=== PATIENT | female | born 1995 | race African-American/Black ===

== ENCOUNTER 2021-11-11 09:03 | Outpatient (CLI) | payer BC, SELFPAY ==
[2021-11-11 09:48] LABS: Hematocrit 42.3 % (37.0-47.0); Hemoglobin 14.2 g/dL (12.0-15.0); Mean Corpuscular HGB Conc 33.6 g/dl (32-36); Mean Corpuscular Hemoglobin 30.9 pg (26-34); Mean Corpuscular Volume 92.2 fl (80-100); Mean Platelet Volume 9.7 fl (7.4-10.4); Platelet Count Result 279 k/mm3 (150-375); Red Blood Count 4.59 M/mm3 (4.2-5.4); Red Cell Distribution Width 12.6 % (11.5-14.5); White Blood Count 6.1 K/mm3 (4.5-10.0)
[2021-11-11 09:55] LABS: Add Urine Microscopic? YES; Appearance Urine Clear (Clear); Bilirubin Urine Negative (Negative); Blood Urine Negative (Negative); Color Urine Yellow (Yellow); Glucose Urine UA Negative (Negative); Ketones Urine Negative (Negative); Leukocyte Esterase Ur Negative LEU/UL (NEGATIVE); Mucus Urine Rare /lpf; Nitrate Urine Negative (Negative); Protein Urine Negative (Negative); RBC Urine 0-2 /hpf (0-2); Specific Grav Ur 1.019 (1.001-1.035); Squamous Epithelial Cell Urine Occasional /hpf (Few); Urobilinogen Urine Negative mg/dL (<2.0); WBC Urine 0-3 /hpf (0-3)
[2021-11-11 10:06] LABS: Alanine Aminotransferase 14 U/L (4-35); Albumin Level 4.4 g/dL (3.5-5.1); Alkaline Phosphatase 54 U/L (38-126); Anion Gap 7 mmol/L (8-16); Aspartate Amino Transferase 26 U/L (14-36); Bilirubin,Total 0.9 mg/dL (0.2-1.3); Blood Urea Nitrogen 14 mg/dL (7-17); Carbon Dioxide 27 mmol/L (22-30); Chloride 104 mmol/L (98-107); Cholesterol 148 mg/dL (0-200); Estimated Glomerular Filt Rate > 60; Glucose 84 mg/dL (65-110); HDL Direct 73 mg/dL; Potassium 3.9 mmol/L (3.4-5.0); Sodium 138 mmol/L (137-145); Triglycerides 91 mg/dL (<150)
[2021-11-11 10:15] LABS: Hemoglobin A1C 4.8 % (<5.7)
[2021-11-11 10:17] LABS: LDL Cholesterol Direct 40 mg/dL
[2021-11-11 10:31] LABS: Free T4 Free Thyroxine 1.07 ng/mL (0.78-2.19)
[2021-11-11 10:45] LABS: HIV 1/2 Ab P24 Ag Result Negative (Negative)
[2021-11-11 10:47] LABS: Hepatitis B Surface Antigen Negative (Negative)
[2021-11-11 10:53] LABS: HAV RESULT Negative (Negative); Hepatitis B Core IgM Result Negative (Negative)
[2021-11-11 11:05] LABS: Hepatitis C Virus Antibody Negative (Negative)
[2021-11-11 11:47] LABS: Pregnancy On Board Control Positive; Urine Pregnancy Test Negative
[2021-11-11 12:06] LABS: Beta HCG Quantitative < 2.39 mIU/ML
[2021-11-12 00:44] LABS: Creatinine Urine 159.6 mg/dL
[2021-11-12 01:36] LABS: MALB Creatinine Ratio < 3.8 mg/g (0-30); Microalbumin Urine Random < 6.0 mg/L (0-16.7)
[2021-11-12 06:46] LABS: Rapid Plasma Reagin Non-Reactive (NonReactive)
== END 2021-11-11 09:04 | disposition home or self-care (01) ==
PROVIDERS: PCP Emergency Medicine; Visit Provider Emergency Medicine
DX: Z20.2 Contact with and (suspected) exposure to infections with a predominantly sexual mode of transmission (principal)
CPT/HCPCS: 36415; 80053; 80061; 80074; 81001; 81025; 82043; 83036; 84439; 84443; 84702; 85027; 86592; 86703; 87491; 87591; G0432

== ENCOUNTER 2022-02-01 13:43 | Emergency (ER) | payer BC, SELFPAY ==
[2022-02-01 13:53] VITALS: BP 109/75; PULSE 69; RESP 18; TEMP 37.4; O2SAT 99
--- NOTE | 2022-02-01 14:14 | ED.DENTAL ---
HPI - Dental/Oral General Chief complaint: Dental/Oral Stated complaint: Tooth Pain Time Seen by Provider: 02/01/22 14:14 Source: patient Mode of arrival: ambulatory Limitations: no limitations History of Present Illness HPI Narrative: 26-year-old female presents with complaint of right sided upper gum pain for 2 to 3 days. Reports that she has the infections that come and go to same spot since October. Did see her oral surgeon yesterday and was told that he would open up the abscess and drain it next week. Patient had tooth extracted from this area in October and there is concern for piece of tooth still in gum. Did not start patient on an antibiotic. Told her to go to her dentist for pain medication and antibiotic. She denies fever chills. All systems reviewed and negative except as noted above. Related Data Allergies Allergy/AdvReac Type Severity Reaction Status Date / Time No Known Allergies Allergy Verified 02/01/22 14:07 Review of Systems Review of Systems: CONSTITUTIONAL: Denies fever, chills, or sweats. EYES: Denies visual changes, redness, or discharge. ENT: Denies rhinorrhea, congestion, sore throat, or otalgia. Reports right-sided upper gum pain. CARDIOVASCULAR: Denies chest pain, palpitations, or edema. RESPIRATORY: Denies cough or dyspnea. GASTROINTESTINAL: Denies abdominal pain, nausea, vomiting, or diarrhea. GENITOURINARY: Denies dysuria or hematuria. SKIN: Denies rash or itching. MUSCULOSKELETAL: Denies back pain, joint pain, or myalgia. NEUROLOGIC: Denies headache, numbness, or weakness. PSYCHIATRIC: Denies anxiety or depression. All other systems reviewed are negative, except as documented in HPI. PMFSH Comments At time of signature, agree with nursing past medical, surgical, social and family history. There is no relevant family history pertinent to the presenting complaint. Exam Narrative: GENERAL: This is a well-nourished, well-developed patient, in no apparent distress. HEAD: normocephalic, atraumatic. EYES: PERRL. Sclera clear/white. Vision is grossly intact. EARS: External ears normal NOSE: External nose normal MOUTH: Tooth #3 has been extracted. To gum area there is erythema and swelling with fluctuance concerning for abscess. NECK: Neck supple, non-tender without lymphadenopathy, masses or thyromegaly. CARDIOVASCULAR: Regular rate and rhythm without murmurs, gallops, or rubs. RESPIRATORY: Clear to auscultation. Breath sounds equal bilaterally. No wheezes, rales, or rhonchi. SKIN: warm, Dry, intact with no suspicious lesions or rash, good texture and turgor. NEURO: awake, alert, and oriented to person, place and time. There were no obvious focal neurologic abnormalities. EXTREMITIES: Normal range of motion to all extremities. Course Course Level of Care: Express Care Visit Vital Signs Vital signs: Vital Signs Temperature 37.4 C 02/01/22 13:53 Pulse Rate 69 02/01/22 13:53 Respiratory Rate 18 02/01/22 13:53 Blood Pressure 109/75 02/01/22 13:53 Pulse Oximetry 99 02/01/22 13:53 Temperature 37.4 C 02/01/22 13:53 Pulse Rate 69 02/01/22 13:53 Respiratory Rate 18 02/01/22 13:53 Blood Pressure 109/75 02/01/22 13:53 Pulse Oximetry 99 02/01/22 13:53 Reviewed MDM - Dental/Oral MDM Narrative Medical decision making narrative: Patient has dental abscess. Has already been to see her oral surgeon and has plans for follow-up next week for I&D. Will start on clindamycin. Patient is aware of diagnosis, understands and agrees to treatment plan. Anticipatory guidance given. Patient agrees to follow-up as directed and is aware of reasons to seek care at the emergency department. Portions of this record may have been created with voice recognition software Differential Diagnosis Differential diagnosis: Likely gingival abscess, dental caries and dental abscess Discharge Plan Discharge Clinical Impression: Dental abscess Patient Disposition: Home, Se
== END 2022-02-01 14:25 | disposition home or self-care (01) ==
PROVIDERS: Emergency Provider Nurse Practitioner Family; PCP Emergency Medicine
DX: K04.7 Periapical abscess without sinus (principal)
CPT/HCPCS: 99213; G0463

== ENCOUNTER 2022-03-15 11:08 | Emergency (ER) | payer BC, SELFPAY ==
[2022-03-15 11:18] VITALS: BP 115/73; PULSE 50; RESP 18; TEMP 36.3; O2SAT 100
--- NOTE | 2022-03-15 11:44 | ED.GENADULT ---
HPI - General Adult General Chief complaint: Unspecified Stated complaint: Swollen Lymph Node Time Seen by Provider: 03/15/22 11:30 Source: patient Mode of arrival: ambulatory Limitations: no limitations History of Present Illness HPI narrative: 26 yo F presents with c/o swollen, tender lymph node to L groin for 2 to 3 days. Also reports yellow vaginal discharge with odor. Does not think she has an STI but would like checked. States i thought swollen lymph nodes meant i had an infection . Denies ABD pain. No urinary complaints. No concern for . all systems reviewed and negative except as noted above. Related Data Home Medications Medication Instructions Recorded Confirmed No Home Medications 03/15/22 03/15/22 Allergies Allergy/AdvReac Type Severity Reaction Status Date / Time No Known Allergies Allergy Verified 02/01/22 14:07 Review of Systems Review of Systems: CONSTITUTIONAL: Denies fever, chills, or sweats. EYES: Denies visual changes, redness, or discharge. ENT: Denies rhinorrhea, congestion, sore throat, or otalgia. CARDIOVASCULAR: Denies chest pain, palpitations, or edema. RESPIRATORY: Denies cough or dyspnea. GASTROINTESTINAL: Denies abdominal pain, nausea, vomiting, or diarrhea. GENITOURINARY: Denies dysuria or hematuria. Reports yellow vaginal discharge. SKIN: Denies rash or itching. Reports left groin enlarged lymph node. MUSCULOSKELETAL: Denies back pain, joint pain, or myalgia. NEUROLOGIC: Denies headache, numbness, or weakness. PSYCHIATRIC: Denies anxiety or depression. All other systems reviewed are negative, except as documented in HPI. PMFSH Comments At time of signature, agree with nursing past medical, surgical, social and family history. There is no relevant family history pertinent to the presenting complaint. Exam Narrative: GENERAL: This is a well-nourished, well-developed patient, in no apparent distress. HEAD: normocephalic, atraumatic. EYES: PERRL. Sclera clear/white. Vision is grossly intact. EARS: External ears normal NOSE: External nose normal NECK: Neck supple, non-tender without lymphadenopathy, masses or thyromegaly. CARDIOVASCULAR: Regular rate and rhythm without murmurs, gallops, or rubs. RESPIRATORY: Clear to auscultation. Breath sounds equal bilaterally. No wheezes, rales, or rhonchi. GASTROINTESTINAL: Abdomen soft, non-tender, nondistended. Bowel sounds are active. No hepato-splenomegaly, or palpable masses. No guarding. : yellow thick vaginal discharge. no odor. cervix normal. no rash, no vaginal irrigation or swelling. SKIN: warm, Dry, intact with no suspicious lesions or rash, good texture and turgor. Lymph node to L groin enlarged and tender. No erythema or warmth. NEURO: awake, alert, and oriented to person, place and time. There were no obvious focal neurologic abnormalities. EXTREMITIES: No joint tenderness, effusion, or edema noted. Course Course Level of Care: Express Care Visit Vital Signs Vital signs: Vital Signs Temperature 36.3 C L 03/15/22 11:18 Pulse Rate 50 L 03/15/22 11:18 Respiratory Rate 18 03/15/22 11:18 Blood Pressure 115/73 03/15/22 11:18 Pulse Oximetry 100 03/15/22 11:18 Oxygen Delivery Room Air 03/15/22 11:18 Temperature 36.3 C L 03/15/22 11:18 Pulse Rate 50 L 03/15/22 11:18 Respiratory Rate 18 03/15/22 11:18 Blood Pressure 115/73 03/15/22 11:18 Pulse Oximetry 100 03/15/22 11:18 Oxygen Delivery Room Air 03/15/22 11:18 Reviewed Medical Decision Making MDM Narrative Medical decision making narrative: thick yellow vaginal discharge. pt does not want abx today to treat for STI. wants to wait for results. Patient is aware of diagnosis, understands and agrees to treatment plan. Anticipatory guidance given. Patient agrees to follow-up as directed and is aware of reasons to seek care at the emergency department. Portions of this record may have been created with voice recognition soft
== END 2022-03-15 11:55 | disposition home or self-care (01) ==
PROVIDERS: Emergency Provider Nurse Practitioner Family; PCP Emergency Medicine
DX: N89.8 Other specified noninflammatory disorders of vagina (principal); R59.1 Generalized enlarged lymph nodes
CPT/HCPCS: 87070; 87491; 87591; 87661; 99214; G0463

== ENCOUNTER 2023-02-24 15:45 | Emergency (ER) | payer BC, SELFPAY ==
[2023-02-24 15:56] VITALS: BP 117/72; PULSE 55; RESP 16; TEMP 37.1; O2SAT 99
--- NOTE | 2023-02-24 15:59 | ED.GENADULT ---
HPI - General Adult General Chief complaint: Head Injury Stated complaint: Head injury; dull headaches; pressure around ears Time Seen by Provider: 02/24/23 16:19 Source: patient, RN notes reviewed and old records reviewed Mode of arrival: ambulatory Limitations: no limitations History of Present Illness HPI narrative: 27-year-old female presents to the [facility] with complaints of a headache. Patient states she went to sit in a chair on Thursday as she sat down she had that back of her head on the wall behind her with ?full force. ? Patient states she took an ibuprofen when it 1st happened but nothing since. Denies any nausea or vomiting. No cervical tenderness. No blurry vision or change in vision. No numbness or tingling in extremities. Walks with a normal gait. Is not light or sound sensitive. Related Data Home Medications Medication Instructions Recorded Confirmed No Home Medications 03/15/22 01/06/23 Allergies Allergy/AdvReac Type Severity Reaction Status Date / Time No Known Allergies Allergy Verified 02/24/23 15:56 Review of Systems Review of Systems: All systems reviewed & are unremarkable except as noted in HPI and below Constitutional: Constitutional: Reports no additional constitutional complaints Eyes: Eyes: Reports no additional eye complaints ENT: Reports system reviewed and no additional complaints, except as documented Cardiovascular: Cardiovascular: Reports no additional cardiovascular complaints, Denies chest pain and Denies dyspnea Respiratory: Respiratory: Reports no additional respiratory complaints, Denies chest congestion, Denies cough and Denies dyspnea Gastrointestinal: Gastrointestinal: Reports no additional gastrointestinal complaints, Denies abdominal pain, Denies nausea and Denies vomiting Musculoskeletal: Musculoskeletal: Reports no additional musculoskeletal complaints Integumentary/Breasts: Skin/Breast: Reports system reviewed and no additional complaints, except as docu Neurologic: Reports as per HPI and Reports headache(s) Psychiatric: Psychiatric: Reports no additional psychiatric complaints Allergic/Immunologic: Allergic/Immunologic: Reports no additional allergic/immunologic complaints [facility] Past Medical History Medical History Encounter for screening examination for sexually transmitted disease Vaginal delivery (12/09/16) no complications [facility] Surgical History Surgical History Delivery by section (11/11/18) primary c/s Saw Family History Family History Father Diabetes mellitus Hypertension Heart disease Other Cerebrovascular accident maternal aunt Mother H/O ovarian cancer Lung cancer Social History Social History Smoking status: Never smoker Alcohol intake: current Drinks per week: 2 Substance use: never Substance use type: does not use Living arrangements: alone Additional living arrangements comments: with children Occupation/Education: occupation Additional occupation/education comments: [employer] Gender identity (if verbalized by the patient): Female Sexual Orientation (if Verbalized by the Patient): Straight or Heterosexual Comments At the time of my signature, I reviewed and agree with the nursing past medical, surgical, social, and family history. There is no relevant family history pertinent to the patient complaint. Exam Const: General: cooperative, healthy appearing, comfortable, no acute distress, well developed, alert and well nourished Nutritional Appearance: well nourished Orientation/consciousness: patient oriented x3 Limitations: no limitations HENMT: Head: normal to inspection Ears: hearing grossly normal bilaterally, external ears normal, TM's normal
== END 2023-02-24 16:32 | disposition home or self-care (01) ==
PROVIDERS: Emergency Provider Nurse Practitioner
DX: R51.9 Headache, unspecified (principal)
CPT/HCPCS: 99213; G0463

== ENCOUNTER 2023-02-24 17:09 | Emergency (ER) | payer BC, SELFPAY ==
[2023-02-24 17:15] VITALS: BP 116/83; PULSE 60; RESP 16; TEMP 36.4; O2SAT 100
--- NOTE | 2023-02-24 17:34 | ED.HA ---
HPI - Headache General Chief Complaint: Headache Stated Complaint: head injury two days ago Time Seen by Provider: 02/24/23 17:34 Source: patient Mode of arrival: ambulatory Limitations: no limitations History of Present Illness HPI Narrative: Patient is a 27-year-old female without significant past medical history presenting to the emergency department for evaluation of headache pain following head trauma 4 days ago. Patient reportedly sat down in a lawn chair, hitting her head on a landscaping brick that was behind her. Patient without loss of conscious. No vision changes, severe headache, nausea or vomiting. No focal weakness or numbness. Patient has no history of anticoagulation use. No history of coagulopathy. She has been ambulatory without difficulty. She was seen initially at urgent care and was sent here for evaluation and possible CT scan of the head. Pt denies neck pain. No focal weakness or numbness. Related Data Allergies Allergy/AdvReac Type Severity Reaction Status Date / Time No Known Allergies Allergy Verified 02/24/23 15:56 Review of Systems Review of Systems: CONSTITUTIONAL: Denies fever CARDIOVASCULAR: Denies chest pain RESPIRATORY: Denies cough or dyspnea. GASTROINTESTINAL: Denies abdominal pain SKIN: Denies rash MUSCULOSKELETAL: Denies back pain NEUROLOGIC: Denies headache PMFSH Past Medical History Medical History Encounter for screening examination for sexually transmitted disease Vaginal delivery (12/09/16) [facility] complications [facility] Surgical History Surgical History Delivery by section (11/11/18) primary c/s Saw Family History Family History Father Diabetes mellitus Hypertension Heart disease Other Cerebrovascular accident maternal aunt Mother H/O ovarian cancer Lung cancer Social History Social History Smoking status: Never smoker Alcohol intake: current Drinks per week: 2 Substance use: never Substance use type: does not use Living arrangements: alone Additional living arrangements comments: with children Occupation/Education: occupation Additional occupation/education comments: [employer] Gender identity (if verbalized by the patient): Female Sexual Orientation (if Verbalized by the Patient): Straight or Heterosexual Exam Narrative: GENERAL: Awake, alert, conversant HEAD: Normocephalic, atraumatic. EYES: PERRLA and EOMI. ENT: Nares clear, no rhinorrhea or epistaxis. Mucous membranes moist. NECK: Supple. CHEST: No respiratory distress, breathing even and non labored HEART: Regular rate, sinus rhythm ABDOMEN:Non distended, non tender EXTREMITIES: Normal range of motion. No edema. SKIN: Warm, dry, no rash. NEURO:No focal deficits. Alert and oriented x3. Finger to nose intact bilaterally. EOMs intact without nystagmus. No facial droop/asymmetry noted bilaterally. Grimace intact. Intact sensation in face. Hearing intact bilaterally. Shoulder shrug intact. Strength 5/5 bilateral upper extremities. Strength 5/5 bilateral lower extremities. Reflexes 2+ patellar. Heel to mckee intact bilaterally. Ambulatory with a narrow base, steady gait, no ataxia. Course Vital Signs Vital signs: Vital Signs Temperature 36.4 C 02/24/23 17:15 Pulse Rate 60 02/24/23 17:15 Respiratory Rate 16 02/24/23 17:15 Blood Pressure 116/83 02/24/23 17:15 Pulse Oximetry 100 02/24/23 17:15 Temperature 36.4 C 02/24/23 17:15 Pulse Rate 60 02/24/23 17:15 Respiratory Rate 16 02/24/23 17:15 Blood Pressure 116/83 02/24/23 17:15 Pulse Oximetry 100 02/24/23 17:15 MDM - Headache MDM Narrative Medical decision making narrative: Patient presented for evaluation of headache after she h
[2023-02-24 17:50] VITALS: BP 122/79; PULSE 64; RESP 14; O2SAT 97
== END 2023-02-24 17:59 | disposition home or self-care (01) ==
LOC: ANHED 17:54
PROVIDERS: Emergency Provider Emergency Medicine
DX: G44.309 Post-traumatic headache, unspecified, not intractable (principal); F07.81 Postconcussional syndrome
CPT/HCPCS: 99283

== ENCOUNTER 2023-07-14 09:07 | Emergency (ER) | payer BC, SELFPAY ==
[2023-07-14 09:22] VITALS: BP 129/62; PULSE 67; RESP 16; TEMP 38.1; O2SAT 99
[2023-07-14 09:44] VITALS: TEMP 38.1
[2023-07-14] MEDS: ACETAMINOPHEN 500 MG TABLET 1000 MG PO (09:44)
--- NOTE | 2023-07-14 09:52 | ED.URI ---
HPI - URI/Sore Throat General Chief Complaint: Upper Respiratory Infection Stated Complaint: Sore Throat Time Seen by Provider: 07/14/23 09:51 Source: patient, RN notes reviewed and old records reviewed Mode of arrival: ambulatory Limitations: no limitations History of Present Illness HPI Narrative: 28-year-old female presents to the [facility] with complaints of a scratchy throat that started last night, body aches, fevers, chills started this morning. No treatment prior to arrival Treatments prior to arrival: none Related Data Home Medications Medication Instructions Recorded Confirmed No Home Medications 07/14/23 07/14/23 Allergies Allergy/AdvReac Type Severity Reaction Status Date / Time No Known Allergies Allergy Verified 07/14/23 09:35 Review of Systems Review of Systems: All systems reviewed & are unremarkable except as noted in HPI and below Constitutional: Constitutional: Reports as per HPI, Reports body ache(s), Reports chills, Reports fatigue, Reports fever(s) and Reports headache(s) Eyes: Eyes: Reports no additional eye complaints ENT: Reports as per HPI and Reports sore throat Cardiovascular: Cardiovascular: Reports no additional cardiovascular complaints, Denies chest pain and Denies dyspnea Respiratory: Respiratory: Reports no additional respiratory complaints, Denies chest congestion, Denies cough and Denies dyspnea Gastrointestinal: Gastrointestinal: Reports no additional gastrointestinal complaints, Denies abdominal pain, Denies nausea and Denies vomiting Musculoskeletal: Musculoskeletal: Reports no additional musculoskeletal complaints Integumentary/Breasts: Skin/Breast: Reports system reviewed and no additional complaints, except as docu Neurologic: Reports system reviewed and no additional complaints, except as documented Psychiatric: Psychiatric: Reports no additional psychiatric complaints Allergic/Immunologic: Allergic/Immunologic: Reports no additional allergic/immunologic complaints [facility] Past Medical History Medical History Encounter for screening examination for sexually transmitted disease Vaginal delivery (12/09/16) no complications [facility] Surgical History Surgical History Delivery by section (11/11/18) primary c/s Saw Family History Family History Father Diabetes mellitus Hypertension Heart disease Other Cerebrovascular accident maternal aunt Mother H/O ovarian cancer Lung cancer Social History Social History Smoking status: Never smoker Alcohol intake: current Drinks per week: 2 Substance use: never Substance use type: does not use Living arrangements: alone Additional living arrangements comments: with children Occupation/Education: occupation Additional occupation/education comments: [employer] Gender identity (if verbalized by the patient): Female Sexual Orientation (if Verbalized by the Patient): Straight or Heterosexual Comments At the time of my signature, I reviewed and agree with the nursing past medical, surgical, social, and family history. There is no relevant family history pertinent to the patient complaint. Exam Const: General: cooperative, healthy appearing, comfortable, no acute distress, well developed, alert and well nourished Nutritional Appearance: well nourished Orientation/consciousness: patient oriented x3 Limitations: no limitations HENMT: Head: normal to inspection Ears: hearing grossly normal bilaterally and external ears normal Face/Nose/Sinus: Normal external nose present, Normal nares present, Normal nasal mucous membranes and turbinates present, normal facial exam and face symmetric Face and sinus: normal facial exam and face symmetric Mouth: Yes Nor
[2023-07-14 10:05] VITALS: TEMP 37.7
== END 2023-07-14 10:05 | disposition home or self-care (01) ==
PROVIDERS: Emergency Provider Nurse Practitioner; PCP Emergency Medicine
DX: B34.9 Viral infection, unspecified (principal); Z20.822 Contact with and (suspected) exposure to COVID-19
CPT/HCPCS: 87081; 87426; 87804; 87880; 99213; A9270; C9803; G0463

== ENCOUNTER 2023-11-11 08:34 | Emergency (ER) | payer BC, SELFPAY ==
[2023-11-11 08:45] VITALS: BP 105/65; PULSE 96; RESP 16; TEMP 37.1; O2SAT 98
--- NOTE | 2023-11-11 08:54 | ED.GENADULT ---
HPI - General Adult General Chief complaint: Upper Respiratory Infection Stated complaint: Cough/Bodyaches Source: patient, RN notes reviewed and old records reviewed Mode of arrival: ambulatory Limitations: no limitations History of Present Illness HPI narrative: 28-year-old female presents to [facility] complaint cough, congestion, sore throat, fever, myalgia, fatigue this started 2 days ago. Patient not taking anything for symptoms. Patient states today's worse today so far. Patient states child has also been sick. Related Data Home Medications Medication Instructions Recorded Confirmed No Home Medications 07/14/23 11/11/23 Allergies Allergy/AdvReac Type Severity Reaction Status Date / Time No Known Allergies Allergy Verified 11/11/23 08:44 Review of Systems Constitutional: Constitutional: Reports no additional constitutional complaints, Reports body ache(s), Denies chills, Reports fatigue, Reports fever(s) and Reports headache(s) Eyes: Eyes: Reports no additional eye complaints and Denies blurry vision ENT: Reports system reviewed and no additional complaints, except as documented, Denies vertigo, Denies dizziness, Denies ear discharge, Denies otalgia, Denies facial pain, Reports headache(s), Reports nasal congestion, Denies nasal discharge, Denies sinus pain, Reports sinus pressure and Reports sore throat Cardiovascular: Cardiovascular: Reports no additional cardiovascular complaints, Denies chest pain, Denies chest pain at rest, Denies rapid heart rate and Denies dyspnea Respiratory: Respiratory: Reports no additional respiratory complaints, Reports chest congestion, Reports cough, Denies pain on inspiration, Denies pain with cough and Denies dyspnea Gastrointestinal: Gastrointestinal: Denies abdominal pain, Denies diarrhea, Denies nausea and Denies vomiting Musculoskeletal: Musculoskeletal: Reports myalgias Integumentary/Breasts: Skin/Breast: Denies rash Neurologic: Reports system reviewed and no additional complaints, except as documented, Denies vertigo, Denies dizziness and Reports headache(s) Endocrine: Endocrine: Denies fatigue PMF Past Medical History Medical History Encounter for screening examination for sexually transmitted disease Vaginal delivery (12/09/16) no complications [facility] Surgical History Surgical History Delivery by section (11/11/18) primary c/s Saw Family History Family History Father Diabetes mellitus Hypertension Heart disease Other Cerebrovascular accident maternal aunt Mother H/O ovarian cancer Lung cancer Social History Social History Smoking status: Never smoker Alcohol intake: current Drinks per week: 2 Substance use: never Substance use type: does not use Living arrangements: alone Additional living arrangements comments: with children Occupation/Education: occupation Additional occupation/education comments: [employer] Gender identity (if verbalized by the patient): Female Sexual Orientation (if Verbalized by the Patient): Straight or Heterosexual Comments At the time of my signature, I reviewed and agree with the nursing past medical, surgical, social, and family history. There is no relevant family history pertinent to the patient complaint. Exam Const: General: cooperative, no acute distress, ill appearing acutely and well nourished Nutritional Appearance: well nourished Orientation/consciousness: patient oriented x3 Limitations: no limitations HENMT: Head: normal to inspection and normocephalic Ears: external ears normal, TM's normal bilaterally, EAC's normal and mastoids normal Face/Nose/Sinus: normal facial exam Face and sinus: normal facial exam Mouth: Yes Nor
== END 2023-11-11 09:08 | disposition home or self-care (01) ==
PROVIDERS: Emergency Provider Registered Nurse
DX: U07.1 COVID-19 (principal)
CPT/HCPCS: 87426; 87804; 99213; G0463

== ENCOUNTER 2023-11-27 12:08 | Emergency (ER) | payer BC, SELFPAY ==
[2023-11-27 12:14] VITALS: BP 122/61; PULSE 77; RESP 17; O2SAT 100
[2023-11-27] MEDS: SODIUM CHLORIDE 0.9% IV 1,000 ML 999 ML IV CONT (13:59)
[2023-11-27] MEDS: PROCHLORPERAZINE EDISYLATE 10 MG/2 ML VIAL IV PUSH (14:00)
[2023-11-27] MEDS: diphenhydrAMINE HCl INJ 50 MG/ML VIAL IV PUSH (14:00)
--- NOTE | 2023-11-27 14:28 | ED.GENADULT ---
HPI - General Adult General Chief complaint: Headache Stated complaint: headache Time Seen by Provider: 11/27/23 13:20 History of Present Illness HPI narrative: Patient is 28-year-old female who presents emergency department with chief complaint of headache. Patient reports the last 3 days she has been having dull sensation in her head that feels like pressure the patient reports photophobia reports some nausea. Patient reports no focal neurological deficits does report that on the of last month she had COVID. Patient denies chest pain denies shortness of breath denies focal neurological deficit Related Data Home Medications Medication Instructions Recorded Confirmed No Home Medications 07/14/23 11/11/23 Allergies Allergy/AdvReac Type Severity Reaction Status Date / Time No Known Allergies Allergy Verified 11/27/23 12:09 Review of Systems Review of Systems: A 10 system review of systems was completed on the patient and is negative except for what is stated in the HPI. Nursing and ancillary documentation was reviewed. [facility] Past Medical History Medical History Encounter for screening examination for sexually transmitted disease Vaginal delivery (12/09/16) no complications [facility] Surgical History Surgical History Delivery by section (11/11/18) primary c/s Saw Family History Family History Father Diabetes mellitus Hypertension Heart disease Other Cerebrovascular accident maternal aunt Mother H/O ovarian cancer Lung cancer Social History Social History Smoking status: Never smoker Alcohol intake: current Drinks per week: 2 Substance use: never Substance use type: does not use Living arrangements: alone Additional living arrangements comments: with children Occupation/Education: occupation Additional occupation/education comments: [employer] Gender identity (if verbalized by the patient): Female Sexual Orientation (if Verbalized by the Patient): Straight or Heterosexual Exam Narrative: GENERAL: Well-appearing, well-nourished, and in no acute distress. HEAD: Normocephalic, atraumatic. EYES: PERRLA and EOMI. ENT: Nares clear, no rhinorrhea or epistaxis. Mucous membranes moist. NECK: Supple. CHEST: Clear to auscultation. No respiratory distress. HEART: Regular rate and rhythm. No murmur heard. Normal peripheral pulses. ABDOMEN: Soft, nontender, nondistended, normal active bowel sounds. EXTREMITIES: Normal range of motion. No edema. SKIN: Warm, dry, no rash. NEURO: No focal deficits. Alert and oriented x3. PSYCH: Normal mood and affect. Course Vital Signs Vital signs: Vital Signs Pulse Rate 77 11/27/23 12:14 Respiratory Rate 17 11/27/23 12:14 Blood Pressure 122/61 11/27/23 12:14 Pulse Oximetry 100 11/27/23 12:14 Oxygen Delivery Room Air 11/27/23 12:14 Pulse Rate 77 11/27/23 12:14 Respiratory Rate 17 11/27/23 12:14 Blood Pressure 122/61 11/27/23 12:14 Pulse Oximetry 100 11/27/23 12:14 Oxygen Delivery Room Air 11/27/23 12:14 Medical Decision Making MDM Narrative Medical decision making narrative: Differential diagnosis includes migraine headache, cephalgia, Patient has no focal neurological deficits afebrile and no nuchal rigidity Patient was treated with a modified migraine cocktail as she has this taken an NSAID Patient started to feel better after receiving medications and would like to go Vital Signs Vital Signs: Vital Signs Pulse Rate 77 11/27/23 12:14 Respiratory Rate 17 11/27/23 12:14 Blood Pressure 122/61 11/27/23 12:14 Pulse Oximetry 100 11/27/23 12:14 Oxygen Delivery Room Air 11/27/23 12:14
[2023-11-27 14:59] VITALS: BP 111/49; PULSE 89; RESP 20; O2SAT 100
== END 2023-11-27 15:01 | disposition home or self-care (01) ==
PROVIDERS: Emergency Provider Emergency Medicine
DX: R51.9 Headache, unspecified (principal); Z20.822 Contact with and (suspected) exposure to COVID-19
CPT/HCPCS: 96361; 96374; 96375; 99284; J0780; J1200; J7030

== ENCOUNTER 2023-12-25 09:28 | Emergency (ER) | payer BC, SELFPAY ==
[2023-12-25 09:54] VITALS: BP 129/75; PULSE 69; RESP 16; TEMP 37.2; O2SAT 99
--- NOTE | 2023-12-25 09:59 | ED.EAR ---
HPI - Ear Problem General Chief complaint: Ear Stated complaint: SNYDER,right ear decreases hearing Time Seen by Provider: 12/25/23 09:59 Source: patient Mode of arrival: ambulatory Limitations: no limitations History of Present Illness HPI Narrative: 28-year-old female presents with complaint of decreased hearing to bilateral ears for 2 days. Reports nasal and sinus congestion for 3-4 days. Afebrile. Not taking any [id number] medications to treat her symptoms. Reports that ears are not painful. All systems reviewed and negative except as noted above. Related Data Allergies Allergy/AdvReac Type Severity Reaction Status Date / Time Penicillins AdvReac Intermediate Headache Verified 12/25/23 10:10 Review of Systems Review of Systems: CONSTITUTIONAL: Denies fever, chills, or sweats. EYES: Denies visual changes, redness, or discharge. ENT: Reports rhinorrhea, congestion. Denies sore throat . Reports decreased hearing to bilateral ears CARDIOVASCULAR: Denies chest pain, palpitations, or edema. RESPIRATORY: Denies cough or dyspnea. GASTROINTESTINAL: Denies abdominal pain, nausea, vomiting, or diarrhea. GENITOURINARY: Denies dysuria or hematuria. SKIN: Denies rash or itching. MUSCULOSKELETAL: Denies back pain, joint pain, or myalgia. NEUROLOGIC: Denies headache, numbness, or weakness. PSYCHIATRIC: Denies anxiety or depression. All other systems reviewed are negative, except as documented in HPI. [facility] Past Medical History Medical History Encounter for screening examination for sexually transmitted disease Vaginal delivery (12/09/16) no complications [facility] Surgical History Surgical History Delivery by section (11/11/18) primary c/s Saw Family History Family History Father Diabetes mellitus Hypertension Heart disease Other Cerebrovascular accident maternal aunt Mother H/O ovarian cancer Lung cancer Social History Social History Smoking status: Never smoker Alcohol intake: current Drinks per week: 2 Substance use: never Substance use type: does not use Living arrangements: alone Additional living arrangements comments: with children Occupation/Education: occupation Additional occupation/education comments: [employer] Gender identity (if verbalized by the patient): Female Sexual Orientation (if Verbalized by the Patient): Straight or Heterosexual Comments At time of signature, agree with nursing past medical, surgical, social and family history. There is no relevant family history pertinent to the presenting complaint. Exam Narrative: GENERAL: This is a well-nourished, well-developed patient, in no apparent distress. HEAD: normocephalic, atraumatic. EYES: PERRL. Sclera clear/white. Vision is grossly intact. EARS: External ears normal, auditory canals clear and without drainage, fluid bilateral TMs, dull light reflex. No erythema or perforation bilaterally. Hearing grossly intact. NOSE: External nose normal with Mild congestion, clear nasal drainage.. THROAT: Mucous membranes moist, Clear postnasal drainage NECK: Neck supple, non-tender without lymphadenopathy, masses or thyromegaly. CARDIOVASCULAR: Regular rate and rhythm without murmurs, gallops, or rubs. RESPIRATORY: Clear to auscultation. Breath sounds equal bilaterally. No wheezes, rales, or rhonchi. SKIN: warm, Dry, intact with no suspicious lesions or rash, good texture and turgor. NEURO: awake, alert, and oriented to person, place and time. There were no obvious focal neurologic abnormalities. EXTREMITIES: No joint tenderness, effusion, or edema noted. Course Course Level of Care: Express Care Visit Vital Signs Vital signs:
== END 2023-12-25 10:15 | disposition home or self-care (01) ==
PROVIDERS: Emergency Provider Nurse Practitioner Family
DX: H65.03 Acute serous otitis media, bilateral (principal); J01.90 Acute sinusitis, unspecified
CPT/HCPCS: 99213; G0463

== ENCOUNTER 2024-07-20 11:14 | Emergency (ER) | payer BC, SELFPAY ==
[2024-07-20 11:33] VITALS: BP 126/74; PULSE 67; RESP 16; TEMP 36.4; O2SAT 97
[2024-07-20 11:59] LABS: BEDSIDEPREGUCG Negative (Negative)
[2024-07-20 12:14] LABS: Add Urine Microscopic? YES; Appearance Urine Cloudy (Clear); Bacteria Urine 2+ /hpf; Bilirubin Urine Negative (Negative); Blood Urine Negative (Negative); Color Urine Yellow (Yellow); Glucose Urine UA Negative (Negative); Ketones Urine Trace mg/dL (Negative); Leukocyte Esterase Ur Negative LEU/UL (Negative); Nitrate Urine Negative (Negative); Non Pathogenic Casts 0-2; Protein Urine Negative (Negative); RBC Urine 0-2 /hpf (0-2); Specific Grav Ur 1.026 (1.001-1.035); Squamous Epithelial Cell Urine Moderate /hpf (Few); WBC Urine 0-5 /hpf (0-3)
--- NOTE | 2024-07-20 13:02 | ED.BACK ---
HPI - Back Pain/Injury General Chief Complaint: Back Pain/Injury Stated Complaint: THREW BACK OUT Time Seen by Provider: 07/20/24 12:06 History of Present Illness HPI Narrative: Pt states she originally tweaked low back a few weeks ago doing back bend for daughter. It was getting better and then this morning she was at gym lifiting and felt tightness in her right low back. Pt deniew numbness or weakness or probs with bladder or bowels. Related Data Allergies Allergy/AdvReac Type Severity Reaction Status Date / Time Penicillins AdvReac Intermediate Headache Verified 07/18/24 09:23 Review of Systems Review of Systems: All systems reviewed & are unremarkable except as noted in HPI and below PMFSH Past Medical History Medical History Encounter for screening examination for sexually transmitted disease Vaginal delivery (12/09/16) no complications [facility] Surgical History Surgical History Delivery by section (11/11/18) primary c/s Saw Family History Family History Father Diabetes mellitus Hypertension Heart disease Other Cerebrovascular accident maternal aunt Mother H/O ovarian cancer Lung cancer Social History Social History (Updated 07/18/24 @ 09:32 by DEVORA Anguiano) Smoking status: Never smoker Alcohol intake: current Drinks per week: 2 Substance use: never Substance use type: does not use Do You Feel Safe in your Home?: Yes Lack of Transportation: No Lack of Food: Never True Current Housing: Decline to Answer Concerned About Future Housing: Decline to Answer Difficulty Paying Gas/Electric Bills: Decline to Answer Difficulty Paying for Meds: Decline to Answer Currently Unemployed: Decline to Answer Education: Decline to Answer Difficulty w/ Childcare or Family Care: Decline to Answer Living arrangements: alone Additional living arrangements comments: with children Occupation/Education: occupation Additional occupation/education comments: [employer] Gender identity (if verbalized by the patient): Female Sexual Orientation (if Verbalized by the Patient): Straight or Heterosexual Exam Const: General: healthy appearing and no acute distress Nutritional Appearance: well nourished Orientation/consciousness: patient oriented x3 Limitations: no limitations Neck: Neck: normal visual inspection Resp: Effort & Inspection: normal respiratory effort Auscultation: clear to auscultation bilaterally Cardio: Rate: regular rate Rhythm: regular rhythm Back/Spine/Pelvis: Other: tender right paraspinous muscles low back with spasm Skin: General skin exam: normal color Neuro: General: patient oriented x3, moves all extremities, no meningeal signs, no focal motor deficits and CN's II-XI intact bilaterally Cranial nerves: Yes Nystagmus not present Speech: normal speech Extrem: General: normal to inspection and no clubbing, cyanosis or edema Psych: Mental Status: mental status grossly normal Affect: normal affect Attitude: cooperative Course Vital Signs Vital signs: Vital Signs Temperature 97.6 F 07/20/24 11:33 Pulse Rate 67 07/20/24 11:33 Respiratory Rate 16 07/20/24 11:33 Blood Pressure 126/74 07/20/24 11:33 Pulse Oximetry 97 07/20/24 11:33 Temperature 97.6 F 07/20/24 11:33 Pulse Rate 67 07/20/24 11:33 Respiratory Rate 16 07/20/24 11:33 Blood Pressure 126/74 07/20/24 11:33 Pulse Oximetry 97 07/20/24 11:33 MDM - Back Pain/Injury MDM Narrative Medical decision making narrative: Pt seems to have pretty typical low back strain. no need to image as no midline pain. pt does not want shot here. home on nsaids and flexeril and a few norco. Lab Data Labs: Lab Results 07/20/24 07/20/24 Range/Units 11:55 11:57 Urine Color Yellow (Yellow) Urine Appearance Cloudy H (Clear) Urine pH 6.0 (5.0-9.0) Ur Specific [place] 1.026 (1.001-1.035) Urine Protein Negative (Negative) mg/dL Urine Glucose (UA) Negative (Negative) mg/dL Urine Ketones Trace H (Negative) mg/dL Ur Blood (Man) Negative (Negative) Urine Nitrate Negative (Negative) Urine Bilirubin Negative (Negative) Urine Urobilinogen 1.0 (<2.0) mg/dL Leukocyte Esterase Rfl Negative (Negative) TRAV/UL Urine RBC 0-2 (0-2) /hpf Urine WBC 0-5 (0-3) /hpf Ur Squamous Epith Cells Moderate (Few) /hpf Urine Bacteria 2+ H /hpf Urine Casts 0-2 POC Urine HCG, Qual Negative (Negative) Discharge Plan Discharge Clinical Impression: Strain of lumbar region Patient Disposition: Home, Self-Care Condition: Stable Instructions: Antibiotic Form, Acute Low Back Pain (ED) Prescriptions: New naproxen [Naprosyn] 500 mg tablet 500 mg PO BID Qty: 20 0RF cyclobenzaprine 10 mg tablet 10 mg PO TID Qty: 14 0RF hydrocodone-acetaminophen 5-325 mg tablet 1 tablet PO Q6H PRN (Reason: pain) Qty: 10 0RF Follow-up/Referrals: PHYSICIAN,PUBLIC HEALTH PHYSICIAN [Non-Staff] - Stand Alone Forms: Work/School Release IP
== END 2024-07-20 12:42 | disposition home or self-care (01) ==
PROVIDERS: Registered Nurse; Emergency Provider Emergency Medicine
DX: S39.012A Strain of muscle, fascia and tendon of lower back, initial encounter (principal); X50.0XXA Overexertion from strenuous movement or load, initial encounter; Y93.B9 Activity, other involving muscle strengthening exercises
CPT/HCPCS: 81001; 81025; 99283

== ENCOUNTER 2024-08-25 08:14 | Emergency (ER) | payer BC, SELFPAY ==
[2024-08-25 08:19] VITALS: BP 116/66; PULSE 62; RESP 16; TEMP 37.3; O2SAT 100
--- NOTE | 2024-08-25 08:26 | ED_ITS ---
HPI - Ear Problem General Chief complaint: Ear Stated complaint: right ear issue, head pressure, dizzy Time Seen by Provider: 08/25/24 08:20 Source: patient Mode of arrival: ambulatory Limitations: no limitations History of Present Illness HPI Narrative: Mara is a 29-year-old female patient presenting to the clinic today with complaints of right ear discomfort/pressure, head pressure, and some dizziness. She reports her symptoms have been going on for the past 2 days. Has been having issues with her ear for over the last year since COVID. Denies any fever, chills, or body aches. Denies any URI symptoms. Feels as though she has a sharp pain in the right neck just below her ear Related Data Allergies Allergy/AdvReac Type Severity Reaction Status Date / Time Penicillins AdvReac Intermediate Headache Verified 07/18/24 09:23 Review of Systems Review of Systems: Pertinent positives per HPI. Patient denies any fever, chills, rash, headache, visual changes, dizziness, cough, runny nose, sore throat, shortness of breath, chest pain, palpitations, nausea, vomiting, diarrhea, constipation, abdominal pain, or any urinary issues. [facility] Past Medical History Medical History Encounter for screening examination for sexually transmitted disease [facility]aginal delivery (12/09/16) [facility] Surgical History Delivery by section (11/11/18) primary c/s Saw Family History Family History Father Diabetes mellitus Hypertension Heart disease Other Cerebrovascular accident maternal aunt Mother H/O ovarian cancer Lung cancer Social History Social History Smoking status: Never smoker Alcohol intake: current Drinks per week: 2 Substance use: never Substance use type: does not use Do You Feel Safe in your Home?: Yes Lack of Transportation: No Lack of Food: Never True Current Housing: Decline to Answer Concerned About Future Housing: Decline to Answer Difficulty Paying Gas/Electric Bills: Decline to Answer Difficulty Paying for Meds: Decline to Answer Currently Unemployed: Decline to Answer Education: Decline to Answer Difficulty w/ Childcare or Family Care: Decline to Answer Living arrangements: alone Additional living arrangements comments: with children Occupation/Education: occupation Additional occupation/education comments: [employer] Gender identity (if verbalized by the patient): Female Sexual Orientation (if Verbalized by the Patient): Straight or Heterosexual Comments At the time of my signature, I reviewed and agree with the nursing past medical, surgical, social, and family history. There is no relevant family history pertinent to the patient complaint. Exam Narrative: General: Well-developed, well nourished, in no apparent distress Head: Normocephalic, atraumatic Eyes: Pupils equally round and reactive to light bilaterally, EOM intact, sclera and conjunctive clear, no discharge, lids normal Ears: TMs intact, mild bulging, clear, ear canals clear, no drainage, grossly hearing normal. Nose: Nares patent, no discharge, no inflammation, no sinus tenderness. Mouth: Oropharynx without lesions or masses, good dentition, MMM. Neck: Supple, trachea midline, no enlargement of anterior or posterior cervical nodes, no thyroid masses or goiter palpable. Cardio: Regular rate and rhythm, s1 and s2 normal, no murmur appreciated. Resp: Clear to auscultation bilaterally anteriorly and posteriorly, no rhonchi, rales, wheezing or rubs Course Course Emergency Course: Portions of this record may have been created with voice recognition software. Level of Care: Express Care Visit Vital Signs Vital signs: Vital Signs Temperature 37.3 C 08/25/24 08:19 Pulse Rate 62 08/25/24 08:19 Respiratory Rate 16 08/25/24 08:19 Blood Pressure 116/66 08/25/24 08:19 Pulse Oximetry 100 08/25/24 08:19 Oxygen Delivery Room Air 08/25/24 08:19 Temperature 37.3 C 08/25/24 08:19 Pulse Rate 62 08/25/24 08:19 Respiratory Rate 16 08/25/24 08:19 Blood Pressure 116/66 08/25/24 08:19 Pulse Oximetry 100 08/25/24 08:19 Oxygen Delivery Room Air 08/25/24 08:19 Vital signs reviewed Medical Decision Making MDM Narrative Medical decision making narrative: At the time of visit patient is resting comfortably on the exam table. Patient appears to be nontoxic. Plan: I suspect patient has eustachian tube dysfunction of the right ear. Prescription for prednisone was sent to the pharmacy. Also recommend using Flonase and [id number] antihistamines as well as trying Afrin if her symptoms are persistent. Will give her name of Dr. Gant to follow up for ears nose and throat. Supportive measures were discussed with the patient and they voiced understanding discharge instructions and agrees to treatment plan. Return precautions reviewed Differential Diagnosis Differential Diagnosis: Otitis media, otitis externa, eustachian tube dysfunction, cerumen impaction, upper respiratory infection, serous otitis Vital Signs Vital Signs: Vital Signs Temperature 37.3 C 08/25/24 08:19 Pulse Rate 62 08/25/24 08:19 Respiratory Rate 16 08/25/24 08:19 Blood Pressure 116/66 08/25/24 08:19 Pulse Oximetry 100 08/25/24 08:19 Oxygen Delivery Room Air 08/25/24 08:19 Temperature 37.3 C 08/25/24 08:19 Pulse Rate 62 08/25/24 08:19 Respiratory Rate 16 08/25/24 08:19 Blood Pressure 116/66 08/25/24 08:19 Pulse Oximetry 100 08/25/24 08:19 Oxygen Delivery Room Air 08/25/24 08:19 Discharge Plan Discharge Clinical Impression: Acute dysfunction of right eustachian tube Patient Disposition: Home, Self-Care Condition: Stable Instructions: Antibiotic Form, Earache (ED) Additional Instructions: Take prescription medications only as prescribed-prednisone May use [id number] Afrin nasal spray as directed-do not use more than 2 days May try chewing gum to help alleviate pressure Increase fluids and stay well hydrated Tylenol/motrin for pain/fever Flonase and OTC antihistamines as directed Go to the ED if you develop a worsening in your condition- high fever not controlled by Tylenol or Motrin, dehydration, weakness, lethargy, shortness of breath, or chest pain. Follow up with your PCP in 3-5 days if symptoms persist. Prescriptions: New prednisone 20 mg tablet 40 mg PO DAILY 5 Days Qty: 10 0RF No Action naproxen [Naprosyn] 500 mg tablet 500 mg PO BID Qty: 20 0RF cyclobenzaprine 10 mg tablet 10 mg PO TID Qty: 14 0RF hydrocodone-acetaminophen 5-325 mg tablet 1 tablet PO Q6H PRN (Reason: pain) Qty: 10 0RF Follow-up/Referrals: Lizandro Gant MD [Physician] - 1 Day (Right eustachian tube dysfunction) PHYSICIAN,SENIOR J2EE DEVELOPER [Primary Care Provider] - Stand Alone Forms: Work/School Release IP Time of Disposition: 08:27 Quality NIHSS Nursing Documentation ED NIHSS nursing documentation: reviewed/agree
== END 2024-08-25 08:37 | disposition home or self-care (01) ==
PROVIDERS: Emergency Provider Nurse Practitioner Family
DX: H69.91 Unspecified Eustachian tube disorder, right ear (principal)
CPT/HCPCS: 99213; G0463

== ENCOUNTER 2025-02-06 15:19 | Emergency (ER) | payer BC, SELFPAY ==
[2025-02-06 15:34] VITALS: BP 118/49; PULSE 55; RESP 20; TEMP 37.1; O2SAT 100
--- NOTE | 2025-02-06 16:03 | ED.URI ---
HPI - URI/Sore Throat General Chief Complaint: Upper Respiratory Infection Stated Complaint: sore throat Source: patient Mode of arrival: ambulatory Limitations: no limitations History of Present Illness HPI Narrative: Patient is a 29-year-old female who presents to the clinic with complaints of a sore throat for 1 day. She is not taking anything better. Denies any shortness of breath, difficulty swallowing, fever, nausea, vomiting, or diarrhea. Related Data Home Medications Medication Instructions Recorded Confirmed Last Taken Type No Home Medications 08/30/24 02/06/25 Unknown History Allergies Allergy/AdvReac Type Severity Reaction Status Date / Time Penicillins AdvReac Intermediate Headache Verified 02/06/25 16:02 Review of Systems Review of Systems: CONSTITUTIONAL: Denies body aches, fever, chills, or sweats. EYES: Denies visual changes, redness, or discharge. ENT: Reports sore throat. Denies rhinorrhea, congestion, or otalgia. CARDIOVASCULAR: Denies chest pain, palpitations, or edema. RESPIRATORY: Denies dyspnea. GASTROINTESTINAL: Denies abdominal pain, nausea, vomiting, or diarrhea. SKIN: Denies rash NEUROLOGIC: Denies headache All systems reviewed & are unremarkable except as noted in HPI and below PMFSH Past Medical History Medical History Encounter for screening examination for sexually transmitted disease Vaginal delivery (12/09/16) no complications [facility] Surgical History Surgical History Delivery by section (11/11/18) primary c/s [facility] Family History Family History Father Diabetes mellitus Hypertension Heart disease Other Cerebrovascular accident maternal aunt Mother H/O ovarian cancer Lung cancer Social History Social History (Updated 08/30/24 @ 09:30 by DEVORA Anguiano) Smoking status: Never smoker Second hand tobacco smoke exposure: No Alcohol intake: former Drinks per week: 2 Substance use: never Substance use type: does not use Do You Feel Safe in your Home?: Yes Lack of Transportation: No Lack of Food: Never True Current Housing: Decline to Answer Concerned About Future Housing: Decline to Answer Difficulty Paying Gas/Electric Bills: Decline to Answer Difficulty Paying for Meds: Decline to Answer Currently Unemployed: Decline to Answer Education: Decline to Answer Difficulty w/ Childcare or Family Care: Decline to Answer Living arrangements: alone Additional living arrangements comments: with children Occupation/Education: occupation Additional occupation/education comments: [employer] Gender identity (if verbalized by the patient): Female Sexual Orientation (if Verbalized by the Patient): Straight or Heterosexual Comments At time of signature, I have reviewed and agree with nursing past medical, surgical, social and family history unless otherwise noted. Please see nursing chart for further information. There is no relevant family history pertinent to the presenting complaint. Exam Narrative: GENERAL: Ill-appearing, no acute distress. EYES: conjunctivae clear ENT: Mucous membranes moist. TM pearly arevalo with normal light reflex bilaterally; no tragal tenderness. Oropharynx erythematous without lesions. Tonsils without exudate. No drooling, no hoarseness, no trismus, uvula midline. No tripod positioning, hot potato voice, or soft palate swelling. NECK: Supple. No lymphadenopathy CHEST: Clear to auscultation, breath sounds equal. No respiratory distress, speaks in full sentences. HEART: Regular rate and rhythm. No murmur heard. SKIN: Warm, dry, no rash. NEURO: Alert and oriented x3. Course Course Level of Care: Express Care Visit Vital Signs Vital signs: Vital Signs Temperature 98.7 F 02/06/25 15:34 Pulse Rate 55 L 02/06/25 15:34 Respiratory Rate 02/06/25 15:34 Blood Pressure 118/49 L 02/06/25 15:34 Pulse Oximetry 100 02/06/25 15:34 Oxygen Delivery Room Air 02/06/25 15:34 Temperature 98.7 F 02/06/25 15:34 Pulse Rate 55 L 02/06/25 15:34 Respiratory Rate 02/06/25 15:34 Blood Pressure 118/49 L 02/06/25 15:34 Pulse Oximetry 100 02/06/25 15:34 Oxygen Delivery Room Air 02/06/25 15:34 Reviewed. MDM - URI/Sore Throat MDM Narrative Medical decision making narrative: Discussed physical exam findings. Advised supportive measures and signs/symptoms to go to the ER. Pt is appropriate for outpatient treatment and follow up. Differential Diagnosis Differential diagnosis: Likely upper respiratory infection, pharyngitis and other (strep throat) Lab Data Labs: Lab Results 02/06/25 Range/Units 15:58 POC Grp A Strep Screen Negative (Negative) Critical Care Time Critical Care Time Critical Care Time: No Discharge Plan Discharge Clinical Impression: Upper respiratory infection Qualifiers: URI type: unspecified URI Qualified Code(s): J06.9 - Acute upper respiratory infection, unspecified Patient Disposition: Home Condition: Stable Instructions: Upper Respiratory Infection (DC) Additional Instructions: Rapid strep swab was negative today You will be notified in a few days if the culture comes back positive for strep, and appropriate antibiotics will be called in at that time. if symptoms are due to a viral illness, it is not treated with antibiotics. Viral symptoms can be present for up to 10-14 days. Recommendations: Flonase spray and Zyrtec for sinus congestion Cough syrup may cause drowsiness; avoid driving or take it at night time. Tylenol every 8 hours as needed for pain/fever Soft foods, cool liquids, warm tea. Gargle with warm saltwater twice a day. Chloraseptic spray and throat lozenges. Rest and stay hydrated. --Follow up with your PCP --Go to the ER immediately if you cannot swallow your saliva, trouble breathing/wheezing, throat swelling, pain is persistent and severe Patient Language: Turkmen Prescriptions: No Action No Home Medications Follow-up/Referrals: PHYSICIAN,[employer] SERVICER [Primary Care Provider] - Stand Alone Forms: Work/School Release IP Time of Disposition: :
[2025-02-06 16:11] LABS: EDSTREPNEGPOS1 Negative (Negative)
== END 2025-02-06 16:38 | disposition home or self-care (01) ==
DX: J06.9 Acute upper respiratory infection, unspecified (principal)
CPT/HCPCS: 87081; 87880; 99213; G0463